=== PATIENT | male | born 1995 | race Two or more races ===

== ENCOUNTER 2023-03-01 00:15 | Emergency (ER) | payer BC, OTHER ==
[~2023-03-01] VITALS: Ht 180.3 cm; Wt 59.1 kg
[2023-03-01] MEDS ORDERED: SODIUM CHLORIDE 0.9% 1,000 ML IV ONE ×3 (00:30→10:00)
[2023-03-01 00:35] VITALS: PULSE 91; RESP 19; O2SAT 99
[2023-03-01 01:38] VITALS: PULSE 93; RESP 12; O2SAT 99
[2023-03-01 08:00] VITALS: PULSE 70; RESP 12; O2SAT 99
[2023-03-01 13:00] VITALS: BP 103/52; PULSE 69; RESP 16; TEMP 98; O2SAT 95
== END 2023-03-01 13:33 | disposition home or self-care (01) ==
LOC: EDBD 00:15 → ER 00:15
DX: F10.129 Alcohol abuse with intoxication, unspecified (principal); Y90.0 Blood alcohol level of less than 20 mg/100 ml; R51.9 Headache, unspecified
CPT/HCPCS: 36415; 70450; 80320; 96360; 96361; 99285; J7030